=== PATIENT | male | born 1955 | race Caucasian/White ===

== ENCOUNTER → 2017-04-14 | Outpatient (CLI) | payer OTHER ==
[~2017-04-14] MED LIST: LEVAQUIN750 MG PO
== END | disposition home or self-care (01) ==
LOC: CT 17:36
DX: K40.90 Unilateral inguinal hernia, without obstruction or gangrene, not specified as recurrent (principal)
CPT/HCPCS: 74177

== ENCOUNTER 2017-04-28 09:09 | Emergency (ER) | payer OTHER ==
[~2017-04-28] VITALS: Ht 190.5 cm; Wt 122.7 kg
[2017-04-28 10:58] LABS: CHLORIDE 104 mEq/L (99-109); HEMATOCRIT 46.8 % (38.0-50.0); MCH 29.9 PG (29.0-34.0); MCHC 34.6 G/DL (30.0-36.0); MCV 86.3 FL (86-99); MEAN PLAT.VOLUME 9.6 uM^3 (9.0-12.4); PLATELET COUNT 238 K/uL (156-360); POTASSIUM 3.9 mEq/L (3.7-5.4); RBC DIS.WIDTH-CV 12.5 % (11.8-14.6); RBC DIS.WIDTH-SD 39.4 % (39-53); RED BLOOD COUNT 5.42 M/uL (4.00-5.50); SODIUM 142 mEq/L (136-147); WHITE BLOOD COUNT 5.2 K/uL (4.1-10.2)
[2017-04-28 11:00] LABS: GLUCOSE 137 mg/dL (70-99)
[2017-04-28 11:01] LABS: ANION GAP 11 MEQ/L (2-14)
[2017-04-28 11:04] LABS: ALKALINE PHOSPHATASE 76 IU/L (3-129); GFR ESTIMATE (CALCULATED) > 59 mL/min/
[2017-04-28 11:05] LABS: UREA NITROGEN (BUN) 18 mg/dL (9-23)
[2017-04-28] MEDS ORDERED: ULTRAM50 MG PO (12:15)
[2017-04-28] MEDS ORDERED: TYLENOL WITH C1 EACH PO (12:48)
[2017-04-28 12:51] VITALS: BP 151/92
== END 2017-04-28 12:56 | disposition home or self-care (01) ==
LOC: EME 09:09
PROVIDERS: Nurse Practitioner Family
DX: K40.90 Unilateral inguinal hernia, without obstruction or gangrene, not specified as recurrent (principal); K80.20 Calculus of gallbladder without cholecystitis without obstruction; K76.0 Fatty (change of) liver, not elsewhere classified; N40.0 Benign prostatic hyperplasia without lower urinary tract symptoms; F17.220 Nicotine dependence, chewing tobacco, uncomplicated
CPT/HCPCS: 74177; 80053; 81003; 85027; 99281; 99284; J3010; J7030

== ENCOUNTER 2017-06-05 06:10 | Day surgery (SDC) | payer OTHER ==
[~2017-06-05] VITALS: Ht 190.5 cm; Wt 127.0 kg
[~2017-06-05 06:10] MED LIST changes: +TYLENOL WITH C1 EACH PO; +ULTRAM50 MG PO
[2017-06-05 07:15] VITALS: BP 172/81
[2017-06-05] MEDS ORDERED: PERCOCET 5/31 TABLET PO (10:40)
[2017-06-05 11:57] VITALS: BP 166/85
[2017-06-05 12:47] VITALS: BP 146/74
== END 2017-06-05 12:53 | disposition home or self-care (01) ==
LOC: SDC 06:10 → 2SOUTH 13:38 → EDSTATUS 13:38 → SDC 13:44
PROC: 0YU60JZ Supplement Left Inguinal Region with Synthetic Substitute, Open Approach (ICD-10-PCS; principal; 2017-06-05)
DX: K40.30 Unilateral inguinal hernia, with obstruction, without gangrene, not specified as recurrent (principal); E66.9 Obesity, unspecified; Z68.34 Body mass index [BMI] 34.0-34.9, adult; R47.9 Unspecified speech disturbances; E86.0 Dehydration; F17.220 Nicotine dependence, chewing tobacco, uncomplicated
CPT/HCPCS: C1781; J0131; J0690; J1100; J2250; J2405; J3010